=== PATIENT | female | born 1980 | race Caucasian/White ===

== ENCOUNTER 2020-08-23 03:11 | Emergency (ER) | payer MEDICAID ==
[~2020-08-23] VITALS: Ht 165.1 cm; Wt 75.5 kg
[2020-08-23] MEDS ORDERED: LORazepam 1MG TABLET ONE (03:23)
--- NOTE | 2020-08-23 03:29 | NUR ---
pt bib ems, pt placed on legal hold by yasmin. per ems pt was stating taking an unk amount of ibuprofen and tyleol. per pt she stated she did not take any pills and only did it to get her boyfriends attention. denies si or hi at this time. pt states no history of si or hi ever. pt states she recently lost her father's ashes, lost her home, and has been unabl to get a job. pt states she would like some resources to get help. pt medicated per emar, no other needs at this time
[2020-08-23] MEDS ORDERED: LORazepam 1MG TABLET PO ONE (03:30)
[2020-08-23 03:47] VITALS: BP 122/78
--- NOTE | 2020-08-23 03:55 | NUR ---
pt taken off of legal hold by erp. paper in chart.
== END 2020-08-23 04:02 | disposition home or self-care (01) ==
LOC: ED 03:41
DX: F41.1 Generalized anxiety disorder (principal); F60.9 Personality disorder, unspecified; F17.210 Nicotine dependence, cigarettes, uncomplicated; Z72.9 Problem related to lifestyle, unspecified
CPT/HCPCS: 99283; 99406